=== PATIENT | female | born 1955 | race Caucasian/White ===

== ENCOUNTER → 2018-03-16 | Outpatient (CLI) | payer BC, OTHER ==
[~2018-03-16] MED LIST: EFFEXOR XR150 MG PO; NAPROSYN500 MG PO
== END ==
LOC: RAD 12:43
DX: Z12.31 Encounter for screening mammogram for malignant neoplasm of breast (principal)

== ENCOUNTER → 2018-04-29 | Outpatient (CLI) | payer BC, OTHER | LOC: RAD 11:45 | DX: M47.22 Other spondylosis with radiculopathy, cervical region (principal) ==

== ENCOUNTER → 2021-06-17 | Outpatient (CLI) | payer OTHER ==
--- NOTE | 2021-06-23 20:08 | SLE ---
[facility] [address] [place] [address] POLYSOMNOGRAPHY STUDY Name: RENETTA LOZOYADAFNE Room #: REG MEGHANN ZhangRolandCarolinRoland#: [id number] Admission: 06/17/21 Attend Phys: Barby Rosa DNP Discharge: Date of : 55 Report #: [id number] THIS REPORT FOR: cc: Barby Rosa DNP, Mary E. DNP Khan, Aman U. MD ~ cc: VIRIDIANA Saez DATE OF SERVICE: 06/17/2021 SLEEP STUDY ATTENDING PHYSICIAN: Dr. Barby Rosa. The patient is 65 years old who weighs 195 pounds with a BMI of 31. The patient's Montrose score was 10. The patient has a history of sleep apnea. Her CPAP machine broke. As a result, she was sent for a CPAP titration study by the patient's primary care provider. During the night of study, the patient spent 393 minutes in bed and slept for 246 minutes with a low sleep efficiency of 62%. Sleep latency was 49 minutes with a REM latency of 189 minutes. Sleep architecture showed normal stage I sleep, increased stage II sleep, normal slow wave and reduced REM sleep, which was 12% of the total sleep time. EKG monitoring revealed an average heart rate of 65 beats per minute. No sustained arrhythmias observed. PLMs were seen at an index of 15 per hour and 3 per hour caused EEG arousals. The patient was started at a CPAP pressure of 10 cm of water. This is the usual pressure the patient uses at home. The pressure was increased up to 14 cm of water. At the final pressure, the patient slept for 142 minutes. The patient had supine and REM sleep. The patient's AHI was reduced to 4.6 per hour and oxygen saturation remained above 91%. The patient had 5 central apneas at the final pressure. IMPRESSION: 1. Sleep apnea diagnosed by previous sleep study. 2. Mild PLMs without any significant EEG arousals. RECOMMENDATIONS: 1. CPAP at 14 cm of water should be used on a nightly basis. 2. Follow up in 4-6 weeks to assess compliance with CPAP and to document clinical improvement. 3. Weight loss is advised. [facility] [address] [place] [address] POLYSOMNOGRAPHY STUDY Name: RENETTA LOZOYA [facility] Room #: REG Radha Varela#: [id number] Admission: 06/17/21 Attend Phys: Barby Rosa DNP Discharge: Date of : 55 Report #: [id number] 4. Avoid [employer] depressants. 5. Cautioned regarding driving until symptoms of sleep apnea resolve with the use of CPAP. 6. PLMs does not need to be treated unless the patient has symptoms of restless legs during the day. <ELECTRONICALLY SIGNED> By: Ovidio Marcos MD 06/23/212007 [id number] Ovidio Marcos MD /nt
== END ==
LOC: SLEEPLAB 14:44
PROVIDERS: ATTEND Nurse Practitioner
DX: G47.33 Obstructive sleep apnea (adult) (pediatric) (principal); Z20.822 Contact with and (suspected) exposure to COVID-19; Z99.89 Dependence on other enabling machines and devices